=== PATIENT | male | born 1940 | race Caucasian/White ===

== ENCOUNTER 2018-12-29 11:29 | Inpatient (IN) ==
[2018-12-29] MEDS ORDERED: Potassium Chloride Elixir 20 MEQ/15 ML UDC PO ONE (12:19)
[2018-12-29] MEDS ORDERED: 0.9 % Sodium Chloride 1,000 ML IVC ONE (12:19)
[2018-12-29] MEDS ORDERED: Isovue-370 500 ML BOTTLE IVP ONE (12:23)
[2018-12-29 13:05] LABS: Bilirubin,Urine Negative (Negative); Blood,Urine Trace (Negative); Clarity,Urine Clear (Clear); Color,Urine Yellow (Yellow); Glucose,Urine (UA) Normal (Normal); Ketones,Urine Negative (Negative); Leukocyte Esterase,Urine Negative (Negative); Nitrite,Urine Negative (Negative); Protein,Urine 30 mg/dL (Neg-Trace); Specific Gravity,Urine 1.023 (1.010-1.025); Urobilinogen,Urine Normal (Normal)
[2018-12-29 13:06] LABS: Bacteria,Urine None Seen per hpf (None-Few); RBC,Urine 15-30 per hpf (0-3); Squamous Epithelial Cell,Urine Few per lpf (None-Few); WBC,Urine 0-3 per hpf (0-3)
[2018-12-29 13:07] LABS: Hyaline Casts,Urine None Seen per lpf (None-Few)
[2018-12-29 14:36] LABS: VBG Ionized Calcium 1.22 mmol/L (1.15-1.35)
[2018-12-29 14:42] LABS: INR 1.1; Prothrombin Time 12.1 Seconds (9.4-12.1)
[2018-12-29 14:45] LABS: Activated Partial Thrombo Time 27.6 Seconds (26.0-36.0)
[2018-12-29 15:02] LABS: Troponin I 0.14 ng/mL (< 0.04)
[2018-12-29 15:11] LABS: Albumin 3.3 g/dL (3.5-5.7); Albumin/Globulin Ratio 1.5 (1.1-2.2); Bilirubin,Direct 0.1 mg/dL (0.0-0.2); Bilirubin,Indirect 0.4 mg/dL (0.0-1.2); Bilirubin,Total 0.5 mg/dL (0.3-1.0); Globulin 2.2 g/dL (2.4-3.5); Magnesium 1.4 mg/dL (1.6-2.6); Phosphorous 3.3 mg/dL (2.7-4.5); Total Protein 5.5 g/dL (6.4-8.9)
[2018-12-29] MEDS ORDERED: Naloxone 0.4 MG/ML INJ IVP PRN (15:13)
[2018-12-29] MEDS ORDERED: Potassium Chloride 40 MEQ/200 ML BAG IVPB PRN (15:19)
[2018-12-29] MEDS ORDERED: Dextrose Gel 15 GM/37.5 ML TUBE PO PRN ×2 (15:21)
[2018-12-29] MEDS ORDERED: *HR* Dextrose 50 % in Water (Syg) 50 ML SYRINGE IVP PRN (15:21)
[2018-12-29] MEDS ORDERED: D5% in Water 1,000 ML IVC PRN (15:21)
[2018-12-29] MEDS ORDERED: Vancomycin (wt based) 1,000 MG VIAL IVPB SCH (16:00)
[2018-12-29] MEDS ORDERED: Azithromycin 500 MG in 0.9 % Sodium Chloride 250 ML IVPB SCH (16:00)
[2018-12-29] MEDS: Ringers Solution, Lactated 1,000 ML IVC SCH (16:42)
[2018-12-29] MEDS: Piperacillin/Tazobactam 3.375 GM in 0.9 % Sodium Chloride Mini Bag 100 ML IVPB SCH ×2 (16:43→23:17)
[2018-12-29] MEDS: Sucralfate 1 GM TABLET PO SCH ×2 (16:43→21:26)
[2018-12-29 16:44] LABS: Hemoglobin 9.2 g/dL (12.9-16.9)
[2018-12-29 16:45] LABS: White Blood Count 29.7 K/mcL (4.3-11.1)
[2018-12-29 16:46] LABS: Hematocrit 28.6 % (37.5-50.1); Mean Corpuscular HGB Conc 32.2 g/dL (31.6-35.5); Mean Corpuscular Hemoglobin 33.3 pg (28.0-33.3); Mean Corpuscular Volume 103.6 fL (83.0-100.0); Mean Platelet Volume 9.8 fL (9.4-12.4); Platelet Count 102 K/mcL (140-400); Red Blood Count 2.76 M/mcL (4.19-5.50); Red Cell Distribution Width 18.5 % (11.5-14.5)
[2018-12-29] MEDS: Insulin LISPRO 300 UNITS/3 ML VIAL SQ SCH ×2 (16:54→23:32)
[2018-12-29 17:00] LABS: Lymphocytes # 1.8 K/mcL (0.6-4.6); Monocytes # 1.2 K/mcL (0.0-1.3); Neutrophils # 26.7 K/mcL (1.6-8.9)
[2018-12-29 17:01] LABS: Anisocytosis 1+ (Not Present); Platelet Estimate Decreased (Normal)
[2018-12-29 17:10] LABS: Calcium 8.9 mg/dL (8.6-10.3); Potassium 4.5 mEq/L (3.5-5.1)
[2018-12-30] MEDS: Ringers Solution, Lactated 1,000 ML IVC SCH (00:40)
[2018-12-30 04:31] LABS: VBG Ionized Calcium 1.27 mmol/L (1.15-1.35)
[2018-12-30 04:38] LABS: Basophils % 0.1 %; Eosinophils % 0.1 %; Hemoglobin 8.8 g/dL (12.9-16.9); Red Blood Count 2.67 M/mcL (4.19-5.50)
[2018-12-30 04:40] LABS: Hematocrit 27.8 % (37.5-50.1); Immature Granulocytes % 2.1 % (0-4); Lymphocytes # 1.7 K/mcL (0.6-4.6); Lymphocytes % 6.1 %; Mean Corpuscular HGB Conc 31.7 g/dL (31.6-35.5); Mean Corpuscular Volume 104.1 fL (83.0-100.0); Mean Platelet Volume 9.6 fL (9.4-12.4); Monocytes % 3.8 %; Platelet Count 102 K/mcL (140-400); Red Cell Distribution Width 18.6 % (11.5-14.5); Segmented Neutrophils % 87.8 %; White Blood Count 27.4 K/mcL (4.3-11.1)
[2018-12-30 04:54] LABS: Calcium 8.9 mg/dL (8.6-10.3); Magnesium 1.7 mg/dL (1.6-2.6); Phosphorous 3.8 mg/dL (2.7-4.5)
[2018-12-30 05:08] LABS: Neutrophils # 24.1 K/mcL (1.6-8.9)
[2018-12-30] MEDS: Insulin LISPRO 300 UNITS/3 ML VIAL SQ SCH ×2 (06:27→11:42)
[2018-12-30] MEDS ORDERED: Aminoglycoside Consult 1 EACH MC ONE (08:34)
[2018-12-30] MEDS ORDERED: valACYclovir 500 MG TABLET PO SCH (09:00)
[2018-12-30] MEDS: Piperacillin/Tazobactam 3.375 GM in 0.9 % Sodium Chloride Mini Bag 100 ML IVPB SCH ×3 (10:05→23:50)
[2018-12-30] MEDS: Sucralfate 1 GM TABLET PO SCH ×4 (10:06→21:24)
[2018-12-30] MEDS ORDERED: *HR* Dextrose 50 % in Water (Syg) 50 ML SYRINGE IVP PRN (13:10)
[2018-12-30] MEDS ORDERED: D5% in Water 1,000 ML IVC PRN (13:10)
[2018-12-30] MEDS ORDERED: Dextrose Gel 15 GM/37.5 ML TUBE PO PRN ×2 (13:10)
[2018-12-30] MEDS ORDERED: Naloxone 0.4 MG/ML INJ IVP PRN (13:10)
[2018-12-30] MEDS ORDERED: Azithromycin 500 MG in 0.9 % Sodium Chloride 250 ML IVPB SCH (16:00)
[2018-12-30] MEDS ORDERED: Insulin LISPRO 300 UNITS/3 ML VIAL SQ SCH (18:00)
[2018-12-31 02:02] LABS: Basophils % 0.2 %; Hematocrit 27.4 % (37.5-50.1); Lymphocytes % 7.3 %; Monocytes % 3.8 %; Segmented Neutrophils % 87.1 %
[2018-12-31 02:04] LABS: Basophils # 0.1 K/mcL (0.0-0.2); Eosinophils # 0.1 K/mcL (0.0-0.6); Eosinophils % 0.3 %; Hemoglobin 8.8 g/dL (12.9-16.9); Immature Granulocytes % 1.3 % (0-4); Immature Platelets 1.4 % (1.1-6.1); Lymphocytes # 1.7 K/mcL (0.6-4.6); Mean Corpuscular HGB Conc 32.1 g/dL (31.6-35.5); Mean Corpuscular Hemoglobin 33.5 pg (28.0-33.3); Mean Corpuscular Volume 104.2 fL (83.0-100.0); Mean Platelet Volume 9.8 fL (9.4-12.4); Monocytes # 0.9 K/mcL (0.0-1.3); Platelet Count 115 K/mcL (140-400); Red Blood Count 2.63 M/mcL (4.19-5.50); Red Cell Distribution Width 18.5 % (11.5-14.5); White Blood Count 23.8 K/mcL (4.3-11.1)
[2018-12-31 02:05] LABS: Neutrophils # 20.7 K/mcL (1.6-8.9)
[2018-12-31 02:19] LABS: Calcium 8.8 mg/dL (8.6-10.3); Magnesium 1.5 mg/dL (1.6-2.6); Potassium 4.1 mEq/L (3.5-5.1)
[2018-12-31 02:25] LABS: Anisocytosis 1+ (Not Present); Platelet Estimate Decreased (Normal)
[2018-12-31] MEDS: valACYclovir 500 MG TABLET PO SCH (08:28)
[2018-12-31] MEDS: Piperacillin/Tazobactam 3.375 GM in 0.9 % Sodium Chloride Mini Bag 100 ML IVPB SCH (08:28)
[2018-12-31] MEDS: Sucralfate 1 GM TABLET PO SCH ×4 (08:28→21:29)
[2018-12-31] MEDS: Insulin LISPRO 300 UNITS/3 ML VIAL SQ SCH ×4 (08:29→21:23)
[2018-12-31] MEDS: Apixaban 5 MG TABLET PO SCH (21:29)
[2018-12-31] MEDS: Insulin DETEMIR 100 UNIT/ML X5UNITS SQ SCH (21:29)
[2019-01-01 03:27] LABS: Red Cell Distribution Width 18.1 % (11.5-14.5)
[2019-01-01 03:29] LABS: Hematocrit 27.5 % (37.5-50.1); Hemoglobin 8.7 g/dL (12.9-16.9); Immature Platelets 1.6 % (1.1-6.1); Mean Corpuscular HGB Conc 31.6 g/dL (31.6-35.5); Mean Corpuscular Hemoglobin 33.2 pg (28.0-33.3); Mean Platelet Volume 9.2 fL (9.4-12.4); Platelet Count 128 K/mcL (140-400); Red Blood Count 2.62 M/mcL (4.19-5.50); White Blood Count 25.2 K/mcL (4.3-11.1)
[2019-01-01 03:49] LABS: Magnesium 1.4 mg/dL (1.6-2.6); Potassium 4.1 mEq/L (3.5-5.1)
[2019-01-01 04:14] LABS: Lymphocytes # 1.5 K/mcL (0.6-4.6); Monocytes # 0.5 K/mcL (0.0-1.3); Neutrophils # 23.2 K/mcL (1.6-8.9)
[2019-01-01 04:15] LABS: Anisocytosis 1+ (Not Present); Platelet Estimate Normal (Normal)
[2019-01-01] MEDS: Insulin LISPRO 300 UNITS/3 ML VIAL SQ SCH ×4 (08:16→21:22)
[2019-01-01] MEDS: Apixaban 5 MG TABLET PO SCH ×2 (08:17→21:22)
[2019-01-01] MEDS: Piperacillin/Tazobactam 3.375 GM in 0.9 % Sodium Chloride Mini Bag 100 ML IVPB SCH ×2 (08:17→16:42)
[2019-01-01] MEDS: valACYclovir 500 MG TABLET PO SCH (08:18)
[2019-01-01] MEDS: Sucralfate 1 GM TABLET PO SCH ×4 (08:18→21:21)
[2019-01-01] MEDS ORDERED: 0.9 % Sodium Chloride 1,000 ML IVC SCH (11:15)
[2019-01-01] MEDS: Insulin DETEMIR 100 UNIT/ML X5UNITS SQ SCH (21:23)
[2019-01-01] MEDS ORDERED: 0.9 % Sodium Chloride 1,000 ML IVC ONE (22:35)
[2019-01-02] MEDS: Piperacillin/Tazobactam 3.375 GM in 0.9 % Sodium Chloride Mini Bag 100 ML IVPB SCH ×4 (00:38→23:46)
[2019-01-02 06:15] LABS: Basophils % 0.2 %; Eosinophils # 0.1 K/mcL (0.0-0.6); Eosinophils % 0.3 %; Hematocrit 27.7 % (37.5-50.1); Hemoglobin 8.8 g/dL (12.9-16.9); Immature Granulocytes % 1.2 % (0-4); Lymphocytes # 1.8 K/mcL (0.6-4.6); Lymphocytes % 9.3 %; Mean Corpuscular HGB Conc 31.8 g/dL (31.6-35.5); Mean Corpuscular Hemoglobin 32.8 pg (28.0-33.3); Mean Corpuscular Volume 103.4 fL (83.0-100.0); Mean Platelet Volume 9.4 fL (9.4-12.4); Monocytes # 0.9 K/mcL (0.0-1.3); Monocytes % 4.4 %; Neutrophils # 16.7 K/mcL (1.6-8.9); Platelet Count 116 K/mcL (140-400); Red Blood Count 2.68 M/mcL (4.19-5.50); Red Cell Distribution Width 17.7 % (11.5-14.5); Segmented Neutrophils % 84.6 %; White Blood Count 19.7 K/mcL (4.3-11.1)
[2019-01-02 06:34] LABS: Calcium 8.6 mg/dL (8.6-10.3); Potassium 3.8 mEq/L (3.5-5.1)
[2019-01-02] MEDS: Apixaban 5 MG TABLET PO SCH ×2 (08:12→20:46)
[2019-01-02] MEDS: Sucralfate 1 GM TABLET PO SCH ×4 (08:12→21:06)
[2019-01-02] MEDS: valACYclovir 500 MG TABLET PO SCH (08:12)
[2019-01-02] MEDS: Insulin LISPRO 300 UNITS/3 ML VIAL SQ SCH ×4 (08:30→20:46)
[2019-01-02] MEDS ORDERED: Acetaminophen IV 1,000 MG/100 ML INFUS..BTL IVPB ONE (20:10)
[2019-01-02] MEDS: Insulin DETEMIR 100 UNIT/ML X5UNITS SQ SCH (20:46)
[2019-01-03 04:01] LABS: Basophils % 0.2 %; Eosinophils # 0.1 K/mcL (0.0-0.6); Eosinophils % 0.3 %; Hemoglobin 8.5 g/dL (12.9-16.9); Immature Granulocytes % 0.7 % (0-4); Lymphocytes # 1.8 K/mcL (0.6-4.6); Mean Corpuscular HGB Conc 31.5 g/dL (31.6-35.5); Mean Corpuscular Hemoglobin 33.1 pg (28.0-33.3); Mean Corpuscular Volume 105.1 fL (83.0-100.0); Mean Platelet Volume 9.2 fL (9.4-12.4); Monocytes % 4.7 %; Neutrophils # 17.2 K/mcL (1.6-8.9); Platelet Count 108 K/mcL (140-400); Red Blood Count 2.57 M/mcL (4.19-5.50); Red Cell Distribution Width 17.3 % (11.5-14.5); Segmented Neutrophils % 85.1 %; White Blood Count 20.2 K/mcL (4.3-11.1)
[2019-01-03 04:28] LABS: Calcium 8.7 mg/dL (8.6-10.3); Potassium 3.6 mEq/L (3.5-5.1)
[2019-01-03] MEDS: Piperacillin/Tazobactam 3.375 GM in 0.9 % Sodium Chloride Mini Bag 100 ML IVPB SCH ×3 (08:00→23:54)
[2019-01-03] MEDS: Sucralfate 1 GM TABLET PO SCH ×4 (08:05→21:06)
[2019-01-03] MEDS: Insulin LISPRO 300 UNITS/3 ML VIAL SQ SCH ×4 (08:05→21:05)
[2019-01-03] MEDS: Apixaban 5 MG TABLET PO SCH ×2 (08:06→21:06)
[2019-01-03] MEDS: valACYclovir 500 MG TABLET PO SCH (08:07)
[2019-01-03] MEDS ORDERED: Furosemide 40 MG TABLET PO SCH (11:01)
[2019-01-03 19:01] LABS: Adenovirus Not Detected (Not Detect); Bordetella Pertussis Not Detected (Not Detect); Chlamydophila pneumoniae Not Detected (Not Detect); Coronavirus 229E Not Detected (Not Detect); Coronavirus HKU1 Not Detected (Not Detect); Coronavirus NL63 Not Detected (Not Detect); Coronavirus OC43 Not Detected (Not Detect); Human Metapneumovirus Not Detected (Not Detect); Human Rhinovirus/Enterovirus Not Detected (Not Detect); Influenza A Subtype 2009 H1 Not Detected (Not Detect); Influenza A Untypeable Not Detected (Not Detect); Influenza B Not Detected (Not Detect); Mycoplasma pneumoniae Not Detected (Not Detect); Parainfluenza Virus 1 Not Detected (Not Detect); Parainfluenza Virus 2 Not Detected (Not Detect); Parainfluenza Virus 3 Not Detected (Not Detect); Parainfluenza Virus 4 Not Detected (Not Detect); Respiratory Syncytial Virus Not Detected (Not Detect)
[2019-01-03] MEDS: Insulin DETEMIR 100 UNIT/ML X5UNITS SQ SCH (21:08)
[2019-01-04 07:02] LABS: Hemoglobin 8.5 g/dL (12.9-16.9); Mean Corpuscular HGB Conc 32.7 g/dL (31.6-35.5); Mean Corpuscular Hemoglobin 33.6 pg (28.0-33.3); Mean Corpuscular Volume 102.8 fL (83.0-100.0); Mean Platelet Volume 9.2 fL (9.4-12.4); Platelet Count 113 K/mcL (140-400); Red Blood Count 2.53 M/mcL (4.19-5.50); Red Cell Distribution Width 17.2 % (11.5-14.5); White Blood Count 24.1 K/mcL (4.3-11.1)
[2019-01-04 07:22] LABS: Calcium 8.9 mg/dL (8.6-10.3); Magnesium 1.3 mg/dL (1.6-2.6); Potassium 3.5 mEq/L (3.5-5.1)
[2019-01-04 07:31] LABS: Monocytes # 0.5 K/mcL (0.0-1.3); Neutrophils # 22.7 K/mcL (1.6-8.9)
[2019-01-04 07:32] LABS: Platelet Estimate Slight Decrease (Normal)
[2019-01-04] MEDS: Sucralfate 1 GM TABLET PO SCH ×4 (08:05→20:35)
[2019-01-04] MEDS: Insulin LISPRO 300 UNITS/3 ML VIAL SQ SCH ×4 (08:06→22:55)
[2019-01-04] MEDS: Piperacillin/Tazobactam 3.375 GM in 0.9 % Sodium Chloride Mini Bag 100 ML IVPB SCH ×2 (08:07→16:40)
[2019-01-04] MEDS ORDERED: *HR* HYDROcodone/Acet 5/325 mg TABLET PO PRN (12:22)
[2019-01-04] MEDS ORDERED: Ondansetron 4 MG/2 ML VIAL IVP PRN (12:22)
[2019-01-04 12:44] LABS: Adenovirus F 40/41 PCR Not detected (Not detect); Astrovirus PCR Not detected (Not detect); C.difficile Toxin A/B Gene PCR Not detected (Not detect); Campylobacter by PCR Not detected (Not detect); Cryptosporidium by PCR Not detected (Not detect); Cyclospora cayetanensis PCR Not detected (Not detect); E. coli O157 by PCR Not detected (Not detect); Entamoeba histolytica PCR Not detected (Not detect); Enteroaggregative E.coli(EAEC) Not detected (Not detect); Enteropathogenic E.coli(EPEC) Not detected (Not detect); Enterotoxigenic E.coli (ETEC) Not detected (Not detect); Giardia lamblia PCR Not detected (Not detect); Norovirus GI/GII PCR Not detected (Not detect); Plesiomonas shigelloides PCR Not detected (Not detect); Rotavirus A PCR Not detected (Not detect); Salmonella PCR Not detected (Not detect); Sapovirus PCR Not detected (Not detect); Shig/EnteroinvasiveE coli EIEC Not detected (Not detect); Shigalike tox-prod E coli STEC Not detected (Not detect); Vibrio PCR Not detected (Not detect); Vibrio cholerae PCR Not detected (Not detect); Yersinia enterocolitica PCR Not detected (Not detect)
[2019-01-04] MEDS ORDERED: 0.9 % Sodium Chloride 1,000 ML IVC SCH (12:45)
[2019-01-04 14:35] LABS: RBC,Pleural Fluid < 0.002 M/mcL
[2019-01-04 14:52] LABS: LDH,Pleural Fluid 75 Units/L (No Ref Range); Total Protein,Pleural Fluid < 3.0 g/dL
[2019-01-04 14:53] LABS: Appearance of Pleural Fl Clear (Clear)
[2019-01-04 19:33] LABS: Folate 19.9 ng/mL (3.0-16.0)
[2019-01-04] MEDS: Apixaban 5 MG TABLET PO SCH (20:34)
[2019-01-04] MEDS: Insulin DETEMIR 100 UNIT/ML X5UNITS SQ SCH (20:36)
[2019-01-05] MEDS: Piperacillin/Tazobactam 3.375 GM in 0.9 % Sodium Chloride Mini Bag 100 ML IVPB SCH ×4 (00:06→23:56)
[2019-01-05 05:25] LABS: Basophils % 0.2 %; Eosinophils # 0.1 K/mcL (0.0-0.6); Eosinophils % 0.3 %; Hematocrit 25.5 % (37.5-50.1); Hemoglobin 8.2 g/dL (12.9-16.9); Immature Granulocytes % 1.3 % (0-4); Lymphocytes % 7.1 %; Mean Corpuscular HGB Conc 32.2 g/dL (31.6-35.5); Mean Corpuscular Hemoglobin 33.3 pg (28.0-33.3); Mean Corpuscular Volume 103.7 fL (83.0-100.0); Mean Platelet Volume 9.4 fL (9.4-12.4); Monocytes # 0.9 K/mcL (0.0-1.3); Monocytes % 3.7 %; Platelet Count 120 K/mcL (140-400); Red Blood Count 2.46 M/mcL (4.19-5.50); Segmented Neutrophils % 87.4 %; White Blood Count 24.6 K/mcL (4.3-11.1)
[2019-01-05 05:32] LABS: Basophils # 0.1 K/mcL (0.0-0.2); Lymphocytes # 1.8 K/mcL (0.6-4.6); Neutrophils # 21.5 K/mcL (1.6-8.9)
[2019-01-05 05:43] LABS: Calcium 8.6 mg/dL (8.6-10.3); Magnesium 1.6 mg/dL (1.6-2.6); Potassium 3.4 mEq/L (3.5-5.1)
[2019-01-05 05:56] LABS: Platelet Estimate Slight Decrease (Normal)
[2019-01-05] MEDS: Insulin LISPRO 300 UNITS/3 ML VIAL SQ SCH ×4 (07:38→21:19)
[2019-01-05] MEDS: Sucralfate 1 GM TABLET PO SCH ×4 (08:14→21:23)
[2019-01-05] MEDS: Apixaban 5 MG TABLET PO SCH ×2 (08:15→21:23)
[2019-01-05] MEDS: Insulin DETEMIR 100 UNIT/ML X5UNITS SQ SCH (21:23)
[2019-01-06] MEDS: Insulin LISPRO 300 UNITS/3 ML VIAL SQ SCH ×4 (07:46→20:50)
[2019-01-06] MEDS: Sucralfate 1 GM TABLET PO SCH ×4 (08:04→22:58)
[2019-01-06] MEDS: Piperacillin/Tazobactam 3.375 GM in 0.9 % Sodium Chloride Mini Bag 100 ML IVPB SCH (08:04)
[2019-01-06] MEDS: Apixaban 5 MG TABLET PO SCH ×2 (08:05→20:26)
[2019-01-06 09:15] LABS: Mean Platelet Volume 9.8 fL (9.4-12.4)
[2019-01-06 09:16] LABS: Hematocrit 29.3 % (37.5-50.1); Hemoglobin 9.1 g/dL (12.9-16.9); Mean Corpuscular HGB Conc 31.1 g/dL (31.6-35.5); Mean Corpuscular Hemoglobin 33.1 pg (28.0-33.3); Mean Corpuscular Volume 106.5 fL (83.0-100.0); Platelet Count 143 K/mcL (140-400); Red Blood Count 2.75 M/mcL (4.19-5.50); Red Cell Distribution Width 16.7 % (11.5-14.5)
[2019-01-06 09:24] LABS: Calcium 9.1 mg/dL (8.6-10.3); Magnesium 1.6 mg/dL (1.6-2.6); Phosphorous 3.3 mg/dL (2.7-4.5); Potassium 3.8 mEq/L (3.5-5.1)
[2019-01-06] MEDS ORDERED: *HR* Propofol 200 MG/20 ML VIAL IVP ONE (10:46)
[2019-01-06] MEDS ORDERED: Lidocaine -MPF 2% 2 ML VIAL ONE (10:47)
[2019-01-06] MEDS ORDERED: *HR* Succinylcholine 200 MG/10 ML VIAL IVP ONE (10:48)
[2019-01-06] MEDS ORDERED: *HR* FentaNYL (PF) 100 MCG/2 ML VIAL ONE (10:48)
[2019-01-06] MEDS ORDERED: Lidocaine -MPF 4% 5 ML AMPUL ONE (10:49)
[2019-01-06] MEDS ORDERED: Aminoglycoside Consult 1 EACH MC ONE (15:08)
[2019-01-06 16:43] LABS: Appearance of Body Fluid Cloudy (Clear); Appearance of Body Fluid Slightly Hazy (Clear); Volume of Body Fluid 13 mL; Volume of Body Fluid 27 mL
[2019-01-06 16:45] LABS: Appearance of Body Fluid Cloudy (Clear); Volume of Body Fluid 10 mL; Volume of Body Fluid 14 mL
[2019-01-06] MEDS: Insulin DETEMIR 100 UNIT/ML X5UNITS SQ SCH (20:26)
[2019-01-07 03:43] LABS: Basophils % 0.2 %; Lymphocytes % 3.3 %; Monocytes % 2.7 %; Red Cell Distribution Width 16.6 % (11.5-14.5)
[2019-01-07 03:44] LABS: Basophils # 0.1 K/mcL (0.0-0.2); Eosinophils # 0.1 K/mcL (0.0-0.6); Eosinophils % 0.2 %; Hematocrit 25.6 % (37.5-50.1); Hemoglobin 8.2 g/dL (12.9-16.9); Immature Granulocytes % 2.8 % (0-4); Lymphocytes # 1.1 K/mcL (0.6-4.6); Mean Corpuscular Hemoglobin 33.7 pg (28.0-33.3); Mean Corpuscular Volume 105.3 fL (83.0-100.0); Mean Platelet Volume 9.6 fL (9.4-12.4); Monocytes # 0.9 K/mcL (0.0-1.3); Platelet Count 127 K/mcL (140-400); Red Blood Count 2.43 M/mcL (4.19-5.50); Segmented Neutrophils % 90.8 %
[2019-01-07 03:45] LABS: Neutrophils # 29.7 K/mcL (1.6-8.9)
[2019-01-07 03:46] LABS: White Blood Count 32.7 K/mcL (4.3-11.1)
[2019-01-07 04:06] LABS: Magnesium 1.5 mg/dL (1.6-2.6); Phosphorous 2.9 mg/dL (2.7-4.5); Potassium 3.7 mEq/L (3.5-5.1)
[2019-01-07 04:15] LABS: Anisocytosis 1+ (Not Present); Platelet Estimate Decreased (Normal)
[2019-01-07] MEDS: Insulin LISPRO 300 UNITS/3 ML VIAL SQ SCH ×2 (08:25→12:20)
[2019-01-07] MEDS: Sucralfate 1 GM TABLET PO SCH ×2 (08:26→12:20)
[2019-01-07] MEDS: Apixaban 5 MG TABLET PO SCH (08:27)
[2019-01-07 11:36] VITALS: BP 133/79
[2019-01-09 06:35] LABS: Influenza A PCR Body Fluid NOT DETECTED; Influenza B PCR Body Fluid NOT DETECTED; RVP Body Fluid Source BAL LUL; RVP Body Fluid Source LLL; RVP Body Fluid Source RLL; RVP Body Fluid Source RUL
[2019-01-09 08:31] LABS: RSV PCR Body Fluid NOT DETECTED
[2019-01-09 08:32] LABS: RSV PCR Body Fluid NOT DETECTED
[2019-01-09 13:56] LABS: HSV Source LUL; HSV Source RLL
[2019-01-10 10:57] LABS: HSV Source LLL
[2019-01-11 19:01] LABS: HSV Source BAL RUL
== END 2019-01-07 15:09 | disposition home health service (06) | DRG 871 ==
LOC: EMEROOARM 11:29 → 2ANU 11:29 → SUATTDRO 14:32 → 2NNU 14:40 → ICNU 15:14 → SUATTDRO 16:03 → 3ANU 12-30 13:05
PROVIDERS: ADMIT Internal Medicine; ATTEND Internal Medicine